=== PATIENT | male | born 1960 | race African-American/Black ===

== ENCOUNTER 2019-07-25 15:22 | Emergency (ER) | payer OTHER ==
[~2019-07-25] VITALS: Ht 165.1 cm; Wt 77.0 kg
[2019-07-25] MEDS ORDERED: VISCOUS LIDOCAINE 2% 15 ML UDC PO ONE (17:00)
[2019-07-25] MEDS ORDERED: SODIUM CHLORIDE 0.9% 500 ML IV ONE (17:00)
[2019-07-25] MEDS ORDERED: MAGNESIUM/ALUMINUM HYDROXIDE/SIMETHICONE 30ML UDC PO ONE (17:00)
[2019-07-25] MEDS ORDERED: ASPIRIN 81MG TABLET PO ONE (17:00)
[2019-07-25 17:12] LABS: BASOPHILS % 0.6 % (0.0-2.0); CHLORIDE 108 mEq/L (98-107); EOSINOPHILS % 1.6 % (0.0-5.0); HEMATOCRIT. 41.8 % (42.0-52.0); HEMOGLOBIN. 13.8 g/dL (14.0-18.0); LYMPHOCYTES % 35.8 % (20.0-50.0); MEAN CORPUSCULAR VOLUME 85.2 fL (80.0-94.0); MEAN PLATELET VOLUME 9.1 fl (7.4-10.4); MONOCYTES % 8.1 % (2.0-8.0); NEUTROPHILS % 53.9 % (40.0-76.0); PLATELET 183 x1000/uL (130-400); RED BLOOD CELL COUNT 4.91 mill/uL (4.7-6.1); RED CELL DISTRIBUTION WIDTH 14.9 % (11.6-14.6)
[2019-07-25 17:20] LABS: LDL CHOLESTEROL 105 mg/dL (5-100)
[2019-07-25 17:21] LABS: HDL CHOLESTEROL 55 mg/dL (40-59)
[2019-07-25 19:59] VITALS: BP 139/92
== END 2019-07-25 20:02 | disposition home or self-care (01) ==
LOC: ER 17:05
DX: R07.9 Chest pain, unspecified (principal); R06.00 Dyspnea, unspecified; R06.02 Shortness of breath; R10.13 Epigastric pain; E78.00 Pure hypercholesterolemia, unspecified; F12.10 Cannabis abuse, uncomplicated; F17.200 Nicotine dependence, unspecified, uncomplicated
CPT/HCPCS: 36415; 71275; 80053; 83718; 83721; 83880; 84484; 85025; 93005; 99284; J7040; Z7610